=== PATIENT | male | born 1955 ===

== ENCOUNTER → 2016-09-21 | Day surgery (SDC) | payer OTHER, MEDICARE ==
[~2016-09-21] VITALS: Ht 175.3 cm; Wt 79.4 kg
[~2016-09-21] MED LIST: ADVAIR 250-501 EACH; ATIVAN0.5 M1 PO; ATORVASTATIN CA20 M1; CELEBREX200 M1; CLOZAPINE200 M1 PO; DEPAKOTE ER500 M1 PO; FLOMAX0.4 M1; INDERAL LA60 M1 PO; KLONOPIN0.5 M1 PO; PROAIR HFA8.5 GM; PROTONIX40 M3 PO; ROBINUL1 MG PO; SINGULAIR10 M1; TRINTELLIX5 MG PO; TUDORZA PRESS400 MCG; VESICARE5 M1
--- NOTE | 2016-09-21 09:50 | Operative Report ---
Operative/Inv Procedure Report Surgery Date: 09/21/16 Name of Procedure: Exam under anesthesia with fistulotomy submuscular Pre-Operative Diagnosis: Anal fistula Post-Operative Diagnosis: Intersphincteric anal fistula Estimated Blood Loss: scant Surgeon/Binding Stitcher: MELECIO BONNER JR, DO Anesthesia: laryngeal mask airway, block Monitors: Per routine Implants: None Drains: None Specimens: None Complications: None Condition: Good Operative Indication: This is a 61-year-old gentleman with a symptomatic anal fistula. He presents today for exam under anesthesia with possible fistulotomy Operative/Procedure Note Note: Patient was taken into the operating room placed in supine position on the operating table. He underwent induction of general anesthesia placement of laryngeal mask airway and then was converted to the lithotomy position in [facility]. The perineum was prepped and draped in usual fashion. An anal block was then performed using 0.5% Marcaine with epinephrine, a total of 30 mL was injected. Next I did a gentle digital exam and a medium sized Hill-Jacobo retractor was placed into the anal canal. The retractor was aligned with the posterior midline where the external opening to the fistula was readily visible. A probe was placed through the external opening and easily emerged in the posterior midline at the dentate line. This appeared to be an intersphincteric fistula tract so a primary fistulotomy was then performed. The tissue was divided layer by layer over the probe until the fistulotomy was complete. The base of the fistula tract was fulgurated. The skin edges were marsupialized to the base of the wound 3-0 Vicryl suture. The procedure was then concluded. The perineum was cleansed and dried, bacitracin ointment and a bulky dressing was applied. Patient was converted back to supine. Patient was extubated in the operating room and tolerated the procedure well. He was taken to recovery area in good condition. At the end of this operational needle sponges and instruments were accounted for. Findings: Posterior midline intersphincteric fistula Discharge Disposition: PACU
== END ==
LOC: STS 01:14
DX: K60.3 Anal fistula (principal); K21.9 Gastro-esophageal reflux disease without esophagitis; L29.0 Pruritus ani; J44.9 Chronic obstructive pulmonary disease, unspecified; Z99.81 Dependence on supplemental oxygen
CPT/HCPCS: J0131; J2250